=== PATIENT | female | born 1990 | race Caucasian/White ===

== ENCOUNTER → 2017-10-04 | Outpatient (CLI) | payer OTHER ==
[2017-10-04 13:29] LABS: BASO % 0.3 % (0.0-1.0); EOS # 0.1 10^3/uL (0.0-0.50); IMMATURE GRANULOCYTE % 0.3 % (0-0); LYMPH # 1.7 10^3/uL (1.5-6.5); LYMPH % 24.4 % (24.0-44.0); MEAN CORPUSCULAR HEMOGLOBIN 31.5 pg (27.0-33.0); MEAN CORPUSCULAR HGB CONC 34.1 g/dl (32.0-36.5); MEAN CORPUSCULAR VOLUME 92.3 fl (80.0-96.0); MONO # 0.5 10^3/uL (0.0-0.8); NEUTROPHILS # 4.5 10^3/uL (1.8-7.7); PLATELET COUNT, AUTOMATED 280 10^3/uL (150-450); RED CELL DISTRIBUTION WIDTH 12.3 % (11.5-14.5); WHITE BLOOD COUNT 6.8 10^3/uL (4.0-10.0)
[2017-10-05 10:29] LABS: HBsAg Prenatal NEGATIVE (NEGATIVE)
== END ==
LOC: M SMT 08:43
PROVIDERS: ATTEND Advanced Practice Midwife
DX: Z34.81 Encounter for supervision of other normal pregnancy, first trimester (principal); Z36.89 Encounter for other specified antenatal screening; Z3A.10 10 weeks gestation of pregnancy

== ENCOUNTER → 2017-12-06 | Outpatient (CLI) | payer OTHER | LOC: M SMT 14:50 | DX: Z34.82 Encounter for supervision of other normal pregnancy, second trimester (principal); Z36.89 Encounter for other specified antenatal screening; Z3A.19 19 weeks gestation of pregnancy | CPT/HCPCS: 76811 ==

== ENCOUNTER → 2017-12-25 | Outpatient (CLI) | payer OTHER | LOC: M SMT 13:35 | DX: Z34.82 Encounter for supervision of other normal pregnancy, second trimester (principal); Z3A.22 22 weeks gestation of pregnancy ==

== ENCOUNTER → 2018-01-30 | Outpatient (CLI) | payer OTHER ==
[2018-01-30 17:58] LABS: GLUCOSE CHALLENGE TEST 1 HOUR 74 MG/DL (LESS THAN 140)
[2018-01-30 18:00] LABS: HEMATOCRIT 36.4 % (36.0-47.0); HEMOGLOBIN 11.9 g/dl (12.0-16.0); MEAN CORPUSCULAR HEMOGLOBIN 31.2 pg (27.0-33.0); MEAN CORPUSCULAR HGB CONC 32.7 g/dl (32.0-36.5); MEAN CORPUSCULAR VOLUME 95.5 fl (80.0-96.0); PLATELET COUNT, AUTOMATED 229 10^3/uL (150-450); RED BLOOD COUNT 3.81 10^6/uL (4.00-5.40); RED CELL DISTRIBUTION WIDTH 12.5 % (11.5-14.5); WHITE BLOOD COUNT 7.7 10^3/uL (4.0-10.0)
== END ==
LOC: M SMT 12:55
DX: Z36.89 Encounter for other specified antenatal screening (principal); Z3A.00 Weeks of gestation of pregnancy not specified
CPT/HCPCS: 82950

== ENCOUNTER → 2018-03-28 | Outpatient (REF) | payer OTHER | LOC: M LAB REF 12:59 | DX: Z34.83 Encounter for supervision of other normal pregnancy, third trimester (principal) ==

== ENCOUNTER 2018-04-24 05:22 | Inpatient (IN) | payer OTHER ==
[2018-04-24] MEDS: LR 1,000 ML IV ×5 (06:49→16:55)
[2018-04-24 07:05] LABS: HEMOGLOBIN 12.8 g/dl (12.0-15.5); MEAN CORPUSCULAR HEMOGLOBIN 31.9 pg (27.0-33.0); MEAN CORPUSCULAR HGB CONC 34.6 g/dl (32.0-36.5); MEAN CORPUSCULAR VOLUME 92.3 fl (80.0-96.0); PLATELET COUNT, AUTOMATED 250 10^3/uL (150-450); RED BLOOD COUNT 4.01 10^6/uL (4.00-5.40); RED CELL DISTRIBUTION WIDTH 12.7 % (11.5-14.5); WHITE BLOOD COUNT 10.3 10^3/uL (4.0-10.0)
[2018-04-24] MEDS ORDERED: OXYTOCIN INJ 10 UNITS/ML VIAL (J2590) As Ordered ×2 (07:18)
[2018-04-24] MEDS ORDERED: MORPHINE PRES-FREE INJ 10 MG/10 ML VIAL (J2274) As Ordered (07:18)
[2018-04-24] MEDS ORDERED: PHENYLephrine HCL 500 MCG/5 ML (100MCG/ML) SYRINGE (J2370) As Ordered (07:19)
[2018-04-24] MEDS ORDERED: ePHEDrine SULFATE 25 MG/5 ML(5MG/ML) SYRINGE As Ordered (07:19)
[2018-04-24] MEDS: BICITRA 30ML SOLN UDC PO (07:25)
[2018-04-24] MEDS ORDERED: LACTATED RINGER'S 1000 ML IV ×2 (07:30→07:45)
[2018-04-24] MEDS ORDERED: LR 1,000 ML IV (07:30)
[2018-04-24] MEDS ORDERED: METOCLOPRAMIDE INJ 10MG/2ML VIAL (J2765) IV (07:42)
[2018-04-24] MEDS ORDERED: NALOXONE INJ 0.4 MG/1 ML VIAL (J2310) IV ×2 (07:42)
[2018-04-24] MEDS ORDERED: ONDANSETRON 4MG/2ML VIAL (J2405) IV ×3 (07:42→09:15)
[2018-04-24] MEDS ORDERED: NALBUPHINE HCL 10 MG/ML AMP (J2300) IV (07:42)
[2018-04-24] MEDS ORDERED: ATROPINE SULF 0.4 MG/ML 1ML VIAL (J0461) As Ordered (07:47)
[2018-04-24] MEDS ORDERED: OXYTOCIN 30 UNITS IN 0.9% NaCl 500ML IV BAG (J2590) As Ordered (08:44)
[2018-04-24] MEDS: OXYTOCIN DRIP 30 UNITS in APPROPRIATE DILUENT 1 EA IV (08:55)
[2018-04-24] MEDS: DOCUSATE SODIUM 100 MG CAP PO ×2 (09:00→21:59)
[2018-04-24] MEDS: PRENATAL VITAMINS CHEWABLE TABLET PO (09:00)
[2018-04-24] MEDS ORDERED: PROMETHAZINE 25 MG TAB PO (09:00)
[2018-04-24] MEDS ORDERED: PERCOCET 5MG/325MG TAB PO ×2 (09:00→09:15)
[2018-04-24] MEDS ORDERED: fentaNYL 100 MCG/2 ML INJECTION (J3010) IV (09:15)
[2018-04-24] MEDS: KETOROLAC 30 MG/ML VIAL (J1885) IV ×2 (11:56→18:00)
[2018-04-24] MEDS: MEASLES,MUMPS,RUBELLA VACCINE INJ (MMR-II) (90707) SC (18:11)
[2018-04-24] MEDS: RHOGAM 300 MCG (1500 IU) INJ (J2790) IM (18:11)
[2018-04-25] MEDS: KETOROLAC 30 MG/ML VIAL (J1885) IV ×2 (00:08→06:03)
[2018-04-25] MEDS: LR 1,000 ML IV (00:28)
[2018-04-25 07:37] LABS: MEAN CORPUSCULAR HEMOGLOBIN 31.9 pg (27.0-33.0); MEAN CORPUSCULAR HGB CONC 33.8 g/dl (32.0-36.5); MEAN CORPUSCULAR VOLUME 94.5 fl (80.0-96.0); PLATELET COUNT, AUTOMATED 169 10^3/uL (150-450); RED BLOOD COUNT 3.07 10^6/uL (4.00-5.40); RED CELL DISTRIBUTION WIDTH 12.8 % (11.5-14.5); WHITE BLOOD COUNT 7.4 10^3/uL (4.0-10.0)
[2018-04-25 07:40] LABS: HEMOGLOBIN 9.8 g/dl (12.0-15.5)
[2018-04-25] MEDS: DOCUSATE SODIUM 100 MG CAP PO ×2 (08:42→21:29)
[2018-04-25] MEDS: PERCOCET 5MG/325MG TAB PO ×4 (08:44→22:29)
[2018-04-25] MEDS: PRENATAL VITAMINS CHEWABLE TABLET PO (08:44)
[2018-04-25] MEDS: IBUPROFEN 800 MG TAB PO ×2 (13:41→21:29)
[2018-04-26] MEDS: IBUPROFEN 800 MG TAB PO (05:54)
[2018-04-26] MEDS: PERCOCET 5MG/325MG TAB PO ×2 (05:59→10:15)
[2018-04-26] MEDS: DOCUSATE SODIUM 100 MG CAP PO (08:51)
[2018-04-26] MEDS: PRENATAL VITAMINS CHEWABLE TABLET PO (08:51)
== END 2018-04-26 13:20 | disposition home or self-care (01) | DRG 766 ==
LOC: M LDI 05:22 → M OBS 11:30
PROVIDERS: Obstetrics & Gynecology
PROC: 10D00Z1 Extraction of Products of Conception, Low, Open Approach (ICD-10-PCS; principal; 2018-04-24 07:30)
DX: O32.8XX0 Maternal care for other malpresentation of fetus, not applicable or unspecified (principal); Z37.0 Single live birth; Z3A.39 39 weeks gestation of pregnancy

== ENCOUNTER → 2018-09-16 | Outpatient (REF) | payer OTHER ==
[2018-09-18 14:10] LABS: HPV HYBRID CAPTURE II Negative (Negative)
== END ==
LOC: M LAB REF 13:53
DX: Z01.419 Encounter for gynecological examination (general) (routine) without abnormal findings (principal); Z11.51 Encounter for screening for human papillomavirus (HPV)
CPT/HCPCS: G0123

== ENCOUNTER → 2018-10-09 | Outpatient (CLI) | payer OTHER | LOC: M RAD 17:16 | DX: N63.10 Unspecified lump in the right breast, unspecified quadrant (principal) | CPT/HCPCS: 76642 ==

== ENCOUNTER 2018-10-29 21:01 | Emergency (ER) | payer OTHER ==
[2018-10-29] MEDS: ALPRAZolam 0.5 MG TAB PO ×2 (21:45→22:15)
[2018-10-29] MEDS: ONDANSETRON 4 MG ORAL DISINTEGRATING TAB (Q0162 PER 1MG) PO ×2 (21:45→22:15)
== END 2018-10-29 22:36 | disposition home or self-care (01) ==
LOC: M ED 21:01
DX: C50.919 Malignant neoplasm of unspecified site of unspecified female breast (principal); F41.9 Anxiety disorder, unspecified
CPT/HCPCS: Q0162